=== PATIENT | male | born 1930 | race Caucasian/White ===

== ENCOUNTER 2017-06-07 07:29 | Emergency (ER) | payer OTHER, MEDICARE ==
[~2017-06-07] VITALS: Ht 162.6 cm; Wt 76.2 kg
[~2017-06-07 07:29] MED LIST: AMLO5TAB4 PO; ASPI-1063 PO; CILO100T PO; MIRA50TA PO; OXYB10TA4 PO; PRAV20TA PO
[2017-06-07 07:48] VITALS: BP_SYST 140
[2017-06-07] MEDS: LIDOCAINE 1% 10 MG/ML, 20 ML MDV IJ ONE (09:16)
[2017-06-07] MEDS: DIPH-TET-PERTUS Vaccine 0.5 ML VIAL (ADACEL) IM ONE (09:17)
[2017-06-07] MEDS: BACITRACIN 1 GM OINT TP ONE (09:17)
[2017-06-07 10:22] VITALS: BP_SYST 132
== END 2017-06-07 10:22 | disposition home or self-care (01) ==
LOC: SED 07:29
DX: S01.112A Laceration without foreign body of left eyelid and periocular area, initial encounter (principal); I10 Essential (primary) hypertension; Z95.1 Presence of aortocoronary bypass graft; Z88.5 Allergy status to narcotic agent; Z79.82 Long term (current) use of aspirin; Z79.899 Other long term (current) drug therapy; W18.30XA Fall on same level, unspecified, initial encounter; Y93.01 Activity, walking, marching and hiking; Y92.89 Other specified places as the place of occurrence of the external cause; Y99.8 Other external cause status
CPT/HCPCS: 12013; 70450; 90471; 90715; 99284; J2001